=== PATIENT | male | born 1970 | race Two or more races ===

== ENCOUNTER 2020-07-20 05:55 | Day surgery (SDC) | payer OTHER ==
[2020-07-20] MEDS ORDERED: PERCOCET 5-3251 EACH PO (08:22)
[2020-07-20] MEDS ORDERED: RECTICARE30 GM TOP (08:22)
== END 2020-07-20 14:20 | disposition home or self-care (01) ==
LOC: CIR.AMB 05:55
PROVIDERS: ATTEND Surgery
DX: K60.3 Anal fistula (principal); K64.8 Other hemorrhoids; Z20.828 Contact with and (suspected) exposure to other viral communicable diseases